=== PATIENT | male | born 1945 | race Hispanic/Latino ===

== ENCOUNTER 2020-11-11 10:31 | Outpatient (CLI) | payer MEDICARE | END 2020-11-11 10:32 | disposition home or self-care (01) | LOC: CSHULT 10:31 | PROVIDERS: ATTEND Internal Medicine | DX: R01.1 Cardiac murmur, unspecified (principal); I51.7 Cardiomegaly; I35.8 Other nonrheumatic aortic valve disorders; I35.0 Nonrheumatic aortic (valve) stenosis; I35.1 Nonrheumatic aortic (valve) insufficiency | CPT/HCPCS: 93306 ==

== ENCOUNTER 2021-05-25 11:40 | Inpatient (IN) | payer MEDICARE ==
[2021-05-25 12:24] LABS: #Monocytes 0.4 10x3/uL (0.0-1.1); #Neutrophils 3.7 10x3/uL (1.5-8.4); %Basophils 0.2 % (0.0-2.0); %Lymphocytes 10.8 % (18.0-47.0); %Monocytes 8.2 % (0.0-10.0); %Neutrophils 80.2 % (40.0-75.0); Hemoglobin 17.9 g/dL (13.5-17.5); Mean Corpuscular HGB CONC 36.1 g/dL (32.0-36.0); Mean Corpuscular Hemoglobin 32.6 pg (27.0-33.0); Mean Corpuscular Volume 90.3 fl (81.2-95.1); Mean Platelet Volume 9.8 fl (7.4-10.4); Platelet Count 104 10x3/uL (150-450); RBC Distribution Width 11.9 % (11.5-14.5); Red Blood Cell (RBC) Count 5.49 10x6/uL (4.32-5.72); White Blood Cell (WBC) Count 4.6 10x3/uL (3.5-10.5)
[2021-05-25 13:00] LABS: ALT (SGPT) 15 U/L (8-55); AST (SGOT) 58 U/L (5-34); Albumin 3.3 g/dL (3.4-4.8); Alkaline Phosphatase 80 U/L (40-110); Anion Gap 15 mmol/L (10-20); BUN (Urea Nitrogen) 17 mg/dL (8.4-25.7); Bilirubin, Total 0.9 mg/dL (0.2-1.2); Calc. Creatinine Clearance 0 mL/min (70-130); Calcium 8.1 mg/dL (7.8-10.44); Carbon Dioxide 24 mmol/L (23-31); Chloride 89 mmol/L (98-107); Globulin 3.1 g/dL (2.4-3.5); Glucose 133 mg/dL (83-110); Protein, Total 6.4 g/dL (5.8-8.1); Sodium 124 mmol/L (136-145)
[2021-05-25] MEDS ORDERED: Dexamethasone 10 MG/ML VIAL ONE (13:21)
[2021-05-25] MEDS ORDERED: Pharmacy to Dose REMDESIVIR IVPB PRN (16:13)
[2021-05-25] MEDS ORDERED: guaiFENesin/Dextromethorphan 10 ML UDCUP PO PRN (16:23)
[2021-05-25] MEDS ORDERED: Dexamethasone 4 mg/ml Vial SLOW IVP SCH (16:30)
[2021-05-25] MEDS: Sodium Chloride 0.9% 1,000 ML IV SCH (17:38)
[2021-05-25] MEDS ORDERED: REMDESIVIR 200 MG in Sodium Chloride 0.9% 250 ML 210 ML IV SCH (18:00)
[2021-05-25] MEDS: Colchicine 0.6 MG TAB PO SCH (20:37)
[2021-05-25] MEDS: Enoxaparin Sodium 40 MG/0.4 ML SYRINGE SC SCH (20:37)
[2021-05-26 05:47] LABS: #Monocytes 0.4 10x3/uL (0.0-1.1); #Neutrophils 2.6 10x3/uL (1.5-8.4); %Basophils 0.5 % (0.0-2.0); %Monocytes 10.6 % (0.0-10.0); %Neutrophils 68.1 % (40.0-75.0); Hemoglobin 18.4 g/dL (13.5-17.5); Mean Corpuscular HGB CONC 35.8 g/dL (32.0-36.0); Mean Corpuscular Hemoglobin 32.8 pg (27.0-33.0); Mean Corpuscular Volume 91.6 fl (81.2-95.1); Mean Platelet Volume 9.5 fl (7.4-10.4); Platelet Count 116 10x3/uL (150-450); RBC Distribution Width 12.1 % (11.5-14.5); Red Blood Cell (RBC) Count 5.61 10x6/uL (4.32-5.72); White Blood Cell (WBC) Count 3.8 10x3/uL (3.5-10.5)
[2021-05-26 05:48] LABS: Anion Gap 16 mmol/L (10-20); BUN (Urea Nitrogen) 18 mg/dL (8.4-25.7); Calc. Creatinine Clearance 63 mL/min (70-130); Carbon Dioxide 24 mmol/L (23-31); Chloride 92 mmol/L (98-107); Potassium 4.6 mmol/L (3.5-5.1); Sodium 127 mmol/L (136-145)
[2021-05-26 05:49] LABS: ALT (SGPT) 17 U/L (8-55); AST (SGOT) 64 U/L (5-34); Albumin 3.1 g/dL (3.4-4.8); Alkaline Phosphatase 77 U/L (40-110); Bilirubin, Total 0.7 mg/dL (0.2-1.2); Calcium 8.2 mg/dL (7.8-10.44); Globulin 3.4 g/dL (2.4-3.5); Glucose 143 mg/dL (83-110); Protein, Total 6.5 g/dL (5.8-8.1)
[2021-05-26] MEDS: Multivitamin W/ Minerals 1 TAB PO SCH (08:45)
[2021-05-26] MEDS: Enoxaparin Sodium 40 MG/0.4 ML SYRINGE SC SCH ×2 (08:45→20:41)
[2021-05-26] MEDS: Colchicine 0.6 MG TAB PO SCH ×2 (08:45→20:41)
[2021-05-26] MEDS: Folic Acid 1 MG TAB PO SCH (08:45)
[2021-05-26] MEDS: Cholecalciferol (Vitamin D3) 400 UNITS TAB PO SCH (08:45)
[2021-05-26] MEDS: Thiamine 100 MG TAB PO SCH (08:45)
[2021-05-26] MEDS: Ascorbic Acid 500 mg Chewable Tablet PO SCH (08:45)
[2021-05-26] MEDS: Zinc Sulfate 220 MG CAP PO SCH (08:45)
[2021-05-26] MEDS ORDERED: Dexamethasone 10 MG in Sodium Chloride 0.9% 50 ML IVPB SCH (13:00)
[2021-05-26] MEDS: Dexamethasone 20 MG/5 ML VIAL SLOW IVP SCH (16:19)
[2021-05-26] MEDS: Sodium Chloride 0.9% 1,000 ML IV SCH (16:20)
[2021-05-26] MEDS: Acetaminophen 325 MG TAB PO PRN (16:34)
[2021-05-26] MEDS: Ondansetron PF 4 MG/2 ML Vial IVP PRN (20:10)
[2021-05-26] MEDS: REMDESIVIR 100 MG in Sodium Chloride 0.9% 250 ML 230 ML IV SCH (20:41)
[2021-05-26] MEDS: Guaifenesin DM 100-10/5 ML UDCUP PO PRN (20:42)
[2021-05-27] MEDS: Guaifenesin DM 100-10/5 ML UDCUP PO PRN (03:18)
[2021-05-27] MEDS: Acetaminophen 325 MG TAB PO PRN (03:18)
[2021-05-27 05:59] LABS: Anion Gap 16 mmol/L (10-20); BUN (Urea Nitrogen) 17 mg/dL (8.4-25.7); CRP (Inflammatory) 5.94 mg/dL (= or < 0.5); Calc. Creatinine Clearance 78 mL/min (70-130); Calcium 7.8 mg/dL (7.8-10.44); Carbon Dioxide 21 mmol/L (23-31); Chloride 96 mmol/L (98-107); Glucose 174 mg/dL (83-110); Potassium 4.9 mmol/L (3.5-5.1); Sodium 128 mmol/L (136-145)
[2021-05-27] MEDS: Ondansetron PF 4 MG/2 ML Vial IVP PRN ×2 (06:04→14:27)
[2021-05-27] MEDS ORDERED: Furosemide 20 MG/2 ML VIAL SLOW IVP SCH (06:15)
[2021-05-27] MEDS ORDERED: Morphine 4 MG/ML VIAL SLOW IVP SCH (06:15)
[2021-05-27 07:09] LABS: #Monocytes 0.7 10x3/uL (0.0-1.1); %Basophils 0.2 % (0.0-2.0); %Lymphocytes 8.1 % (18.0-47.0); %Monocytes 8.1 % (0.0-10.0); %Neutrophils 81.8 % (40.0-75.0); Mean Corpuscular HGB CONC 35.9 g/dL (32.0-36.0); Mean Corpuscular Hemoglobin 32.4 pg (27.0-33.0); Mean Corpuscular Volume 90.3 fl (81.2-95.1); Mean Platelet Volume 9.7 fl (7.4-10.4); Platelet Count 132 10x3/uL (150-450); RBC Distribution Width 11.9 % (11.5-14.5); Red Blood Cell (RBC) Count 5.86 10x6/uL (4.32-5.72); White Blood Cell (WBC) Count 8.6 10x3/uL (3.5-10.5)
[2021-05-27] MEDS: Enoxaparin Sodium 40 MG/0.4 ML SYRINGE SC SCH ×2 (07:43→20:32)
[2021-05-27] MEDS: Multivitamin W/ Minerals 1 TAB PO SCH (07:44)
[2021-05-27] MEDS: Cholecalciferol (Vitamin D3) 400 UNITS TAB PO SCH (07:44)
[2021-05-27] MEDS: Folic Acid 1 MG TAB PO SCH (07:44)
[2021-05-27] MEDS: Zinc Sulfate 220 MG CAP PO SCH (07:44)
[2021-05-27] MEDS: Colchicine 0.6 MG TAB PO SCH ×2 (07:44→20:32)
[2021-05-27] MEDS: Ascorbic Acid 500 mg Chewable Tablet PO SCH (07:44)
[2021-05-27] MEDS: Thiamine 100 MG TAB PO SCH (07:44)
[2021-05-27] MEDS ORDERED: Pantoprazole 40 MG VIAL IVP SCH ×2 (10:00→14:30)
[2021-05-27] MEDS: Dexamethasone 20 MG/5 ML VIAL SLOW IVP SCH (14:26)
[2021-05-27] MEDS: Sodium Chloride 0.9% 1,000 ML IV SCH (17:30)
[2021-05-27] MEDS ORDERED: Ketorolac Tromethamine 30 MG/ML VIAL IVP SCH (18:00)
[2021-05-27] MEDS: Ketorolac Tromethamine 30 MG/ML VIAL IVP PRN (18:41)
[2021-05-27] MEDS: Promethazine HCl 6.25 MG in Sodium Chloride 0.9% 50 ML IVPB PRN (18:42)
[2021-05-27] MEDS: REMDESIVIR 100 MG in Sodium Chloride 0.9% 250 ML 230 ML IV SCH (20:31)
[2021-05-28 04:40] LABS: #Monocytes 0.9 10x3/uL (0.0-1.1); #Neutrophils 7.6 10x3/uL (1.5-8.4); %Basophils 0.3 % (0.0-2.0); %Lymphocytes 6.2 % (18.0-47.0); %Monocytes 9.5 % (0.0-10.0); %Neutrophils 82.6 % (40.0-75.0); Hemoglobin 17.1 g/dL (13.5-17.5); Mean Corpuscular HGB CONC 34.5 g/dL (32.0-36.0); Mean Corpuscular Hemoglobin 32.3 pg (27.0-33.0); Mean Corpuscular Volume 93.6 fl (81.2-95.1); Mean Platelet Volume 9.6 fl (7.4-10.4); Platelet Count 147 10x3/uL (150-450); RBC Distribution Width 11.9 % (11.5-14.5); White Blood Cell (WBC) Count 9.2 10x3/uL (3.5-10.5)
[2021-05-28 05:06] LABS: ALT (SGPT) 37 U/L (8-55); AST (SGOT) 113 U/L (5-34); Albumin 2.6 g/dL (3.4-4.8); Alkaline Phosphatase 81 U/L (40-110); Anion Gap 11 mmol/L (10-20); BUN (Urea Nitrogen) 20 mg/dL (8.4-25.7); Bilirubin, Direct 0.4 mg/dL (0.1-0.3); Bilirubin, Total 0.7 mg/dL (0.2-1.2); Calc. Creatinine Clearance 81 mL/min (70-130); Calcium 7.2 mg/dL (7.8-10.44); Carbon Dioxide 24 mmol/L (23-31); Chloride 98 mmol/L (98-107); Glucose 161 mg/dL (83-110); Potassium 4.3 mmol/L (3.5-5.1); Protein, Total 5.2 g/dL (5.8-8.1); Sodium 129 mmol/L (136-145)
[2021-05-28] MEDS: Folic Acid 1 MG TAB PO SCH (08:51)
[2021-05-28] MEDS: Zinc Sulfate 220 MG CAP PO SCH (08:51)
[2021-05-28] MEDS: Multivitamin W/ Minerals 1 TAB PO SCH (08:52)
[2021-05-28] MEDS: Thiamine 100 MG TAB PO SCH (08:52)
[2021-05-28] MEDS: Ascorbic Acid 500 mg Chewable Tablet PO SCH (08:52)
[2021-05-28] MEDS: Cholecalciferol (Vitamin D3) 400 UNITS TAB PO SCH (08:52)
[2021-05-28] MEDS: Enoxaparin Sodium 40 MG/0.4 ML SYRINGE SC SCH ×2 (08:52→20:17)
[2021-05-28] MEDS: Colchicine 0.6 MG TAB PO SCH ×2 (08:52→20:18)
[2021-05-28] MEDS: Pantoprazole 40 MG VIAL IVP SCH (08:52)
[2021-05-28] MEDS: Dexamethasone 20 MG/5 ML VIAL SLOW IVP SCH (16:10)
[2021-05-28] MEDS: Sodium Chloride 0.9% 1,000 ML IV SCH (17:34)
[2021-05-28] MEDS ORDERED: Sodium Chloride 0.9% 500 ML IV SCH (18:30)
[2021-05-28] MEDS ORDERED: FLU VACC QS2021-22(65YR UP)/PF 240 MCG/0.7 ML SYRINGE IM ONE (18:30)
[2021-05-28] MEDS: REMDESIVIR 100 MG in Sodium Chloride 0.9% 250 ML 230 ML IV SCH (21:13)
[2021-05-29] MEDS: Sodium Chloride 0.9% 1,000 ML IV SCH ×6 (02:33→20:12)
[2021-05-29] MEDS: Ondansetron PF 4 MG/2 ML Vial IVP PRN ×4 (03:05→21:26)
[2021-05-29] MEDS: Guaifenesin DM 100-10/5 ML UDCUP PO PRN (05:25)
[2021-05-29] MEDS: Promethazine HCl 6.25 MG in Sodium Chloride 0.9% 50 ML IVPB PRN ×2 (06:29→12:35)
[2021-05-29 08:25] LABS: #Basophils 0.1 10x3/uL (0.0-0.2); #Monocytes 1.4 10x3/uL (0.0-1.1); #Neutrophils 9.1 10x3/uL (1.5-8.4); %Basophils 0.7 % (0.0-2.0); %Lymphocytes 9.3 % (18.0-47.0); %Monocytes 11.5 % (0.0-10.0); %Neutrophils 76.6 % (40.0-75.0); Hemoglobin 18.8 g/dL (13.5-17.5); Mean Corpuscular HGB CONC 34.2 g/dL (32.0-36.0); Mean Corpuscular Hemoglobin 32.5 pg (27.0-33.0); Mean Corpuscular Volume 94.8 fl (81.2-95.1); Platelet Count 148 10x3/uL (150-450); RBC Distribution Width 12.2 % (11.5-14.5); Red Blood Cell (RBC) Count 5.79 10x6/uL (4.32-5.72); White Blood Cell (WBC) Count 11.9 10x3/uL (3.5-10.5)
[2021-05-29] MEDS: Ascorbic Acid 500 mg Chewable Tablet PO SCH (09:49)
[2021-05-29] MEDS: Pantoprazole 40 MG VIAL IVP SCH (09:49)
[2021-05-29] MEDS: Enoxaparin Sodium 40 MG/0.4 ML SYRINGE SC SCH ×2 (09:49→20:12)
[2021-05-29] MEDS: Colchicine 0.6 MG TAB PO SCH ×2 (09:49→20:12)
[2021-05-29] MEDS: Multivitamin W/ Minerals 1 TAB PO SCH (09:49)
[2021-05-29] MEDS: Zinc Sulfate 220 MG CAP PO SCH (09:49)
[2021-05-29] MEDS: Cholecalciferol (Vitamin D3) 400 UNITS TAB PO SCH (09:49)
[2021-05-29] MEDS: Folic Acid 1 MG TAB PO SCH (09:49)
[2021-05-29] MEDS: Thiamine 100 MG TAB PO SCH (09:49)
[2021-05-29 10:07] LABS: Bilirubin, Total 0.4 mg/dL (0.2-1.2); Calcium 7.2 mg/dL (7.8-10.44); Chloride 102 mmol/L (98-107); Potassium 4.4 mmol/L (3.5-5.1); Sodium 126 mmol/L (136-145)
[2021-05-29 10:30] LABS: ALT (SGPT) 102 U/L (8-55); AST (SGOT) 397 U/L (5-34); Albumin 2.7 g/dL (3.4-4.8); Alkaline Phosphatase 105 U/L (40-110); BUN (Urea Nitrogen) 14 mg/dL (8.4-25.7); Bilirubin, Direct 0.3 mg/dL (0.1-0.3); Calc. Creatinine Clearance 96 mL/min (70-130); Carbon Dioxide 16 mmol/L (23-31); Glucose 85 mg/dL (83-110); Protein, Total 5.8 g/dL (5.8-8.1)
[2021-05-29 10:31] LABS: Anion Gap 12 mmol/L (10-20)
[2021-05-29] MEDS: Dexamethasone 20 MG/5 ML VIAL SLOW IVP SCH (12:35)
[2021-05-29] MEDS: Ketorolac Tromethamine 30 MG/ML VIAL IVP PRN ×2 (15:46→21:26)
[2021-05-29] MEDS: Loperamide HCl 2 MG CAP PO PRN ×2 (15:59→20:12)
[2021-05-29] MEDS: Promethazine HCl 12.5 MG, Admixture Fee 1 EACH in Sodium Chloride 0.9% 50 ML IVPB PRN (17:39)
[2021-05-29] MEDS: Acetaminophen 325 MG TAB PO PRN (17:45)
[2021-05-29] MEDS: REMDESIVIR 100 MG in Sodium Chloride 0.9% 250 ML 230 ML IV SCH (20:11)
[2021-05-29] MEDS: hydrALAZINE 20 MG/ML VIAL SLOW IVP PRN (20:35)
[2021-05-30] MEDS: Promethazine HCl 12.5 MG, Admixture Fee 1 EACH in Sodium Chloride 0.9% 50 ML IVPB PRN (01:56)
[2021-05-30] MEDS: Acetaminophen 325 MG TAB PO PRN ×2 (02:08→20:51)
[2021-05-30 07:17] LABS: Anion Gap 12 mmol/L (10-20); BUN (Urea Nitrogen) 12 mg/dL (8.4-25.7); Calc. Creatinine Clearance 98 mL/min (70-130); Calcium 7.3 mg/dL (7.8-10.44); Carbon Dioxide 19 mmol/L (23-31); Chloride 104 mmol/L (98-107); Glucose 84 mg/dL (83-110); Potassium 3.8 mmol/L (3.5-5.1); Sodium 131 mmol/L (136-145)
[2021-05-30 07:22] LABS: #Monocytes 0.9 10x3/uL (0.0-1.1); #Neutrophils 7.8 10x3/uL (1.5-8.4); %Basophils 0.4 % (0.0-2.0); %Lymphocytes 9.1 % (18.0-47.0); %Monocytes 9.2 % (0.0-10.0); %Neutrophils 79.7 % (40.0-75.0); Hemoglobin 18.5 g/dL (13.5-17.5); Mean Corpuscular HGB CONC 36.1 g/dL (32.0-36.0); Mean Corpuscular Hemoglobin 32.6 pg (27.0-33.0); Mean Corpuscular Volume 90.3 fl (81.2-95.1); Mean Platelet Volume 9.1 fl (7.4-10.4); Platelet Count 162 10x3/uL (150-450); RBC Distribution Width 11.9 % (11.5-14.5); Red Blood Cell (RBC) Count 5.67 10x6/uL (4.32-5.72); White Blood Cell (WBC) Count 9.8 10x3/uL (3.5-10.5)
[2021-05-30] MEDS ORDERED: Furosemide 20 MG/2 ML VIAL SLOW IVP SCH ×2 (08:15→08:44)
[2021-05-30 08:24] LABS: ALT (SGPT) 116 U/L (8-55); AST (SGOT) 252 U/L (5-34); Albumin 2.8 g/dL (3.4-4.8); Alkaline Phosphatase 94 U/L (40-110); Bilirubin, Total 1.6 mg/dL (0.2-1.2); Protein, Total 5.3 g/dL (5.8-8.1)
[2021-05-30] MEDS: Sodium Chloride 0.9% 1,000 ML IV SCH (09:30)
[2021-05-30 10:48] LABS: Base Excess (BEa) 0.8 mEq/L (-2.0 to +3.0); Calcium, Ionized (arterial) 1.08 mmol/L (1.12-1.30); Carboxyhemoglobin (COHb) 0.3 gm% (0.0-3.0); Critical Notified Whom: buzpr; Hemoglobin (Hb) 21.1 g/dL (14.0-18.0); O2 Tension (PaO2), arterial 70.6 mmHg (> 70.0); Potassium - ABG Lab 3.6 mmol/L (3.70-5.30); Puncture Site RRA; pH, Arterial 7.48 (7.35-7.45)
[2021-05-30] MEDS: Cholecalciferol (Vitamin D3) 400 UNITS TAB PO SCH ×2 (12:19→12:20)
[2021-05-30] MEDS: Folic Acid 1 MG TAB PO SCH ×2 (12:19→12:21)
[2021-05-30] MEDS: Ascorbic Acid 500 mg Chewable Tablet PO SCH ×2 (12:19→12:20)
[2021-05-30] MEDS: Zinc Sulfate 220 MG CAP PO SCH ×2 (12:20→12:22)
[2021-05-30] MEDS: Multivitamin W/ Minerals 1 TAB PO SCH ×2 (12:20→12:21)
[2021-05-30] MEDS: Colchicine 0.6 MG TAB PO SCH ×2 (12:20→20:51)
[2021-05-30] MEDS: Thiamine 100 MG TAB PO SCH ×2 (12:20→12:21)
[2021-05-30] MEDS ORDERED: Nitroglycerin 0.4 MG TAB (25 Tab Bottle) SL PRN (12:27)
[2021-05-30] MEDS: Pantoprazole 40 MG VIAL IVP SCH (12:29)
[2021-05-30] MEDS: Enoxaparin Sodium 40 MG/0.4 ML SYRINGE SC SCH ×2 (12:29→20:50)
[2021-05-30] MEDS ORDERED: Lorazepam 2 MG/ML VIAL SLOW IVP PRN (13:33)
[2021-05-30] MEDS: BARICITINIB 2 MG TAB PO SCH (16:48)
[2021-05-30] MEDS: Ketorolac Tromethamine 30 MG/ML VIAL IVP PRN (16:48)
[2021-05-30] MEDS: Ondansetron PF 4 MG/2 ML Vial IVP PRN (16:50)
[2021-05-30] MEDS: Dexamethasone 20 MG/5 ML VIAL SLOW IVP SCH (20:50)
[2021-05-31 03:46] LABS: #Monocytes 0.3 10x3/uL (0.0-1.1); #Neutrophils 4.6 10x3/uL (1.5-8.4); %Basophils 0.4 % (0.0-2.0); %Lymphocytes 11.5 % (18.0-47.0); %Monocytes 4.6 % (0.0-10.0); %Neutrophils 82.1 % (40.0-75.0); Hemoglobin 18.4 g/dL (13.5-17.5); Mean Corpuscular HGB CONC 36.4 g/dL (32.0-36.0); Mean Corpuscular Hemoglobin 32.5 pg (27.0-33.0); Mean Corpuscular Volume 89.1 fl (81.2-95.1); Mean Platelet Volume 9.1 fl (7.4-10.4); Platelet Count 145 10x3/uL (150-450); RBC Distribution Width 11.8 % (11.5-14.5); Red Blood Cell (RBC) Count 5.67 10x6/uL (4.32-5.72); White Blood Cell (WBC) Count 5.6 10x3/uL (3.5-10.5)
[2021-05-31] MEDS: Ondansetron PF 4 MG/2 ML Vial IVP PRN ×2 (04:03→10:15)
[2021-05-31 04:06] LABS: ALT (SGPT) 120 U/L (8-55); AST (SGOT) 171 U/L (5-34); Albumin 2.9 g/dL (3.4-4.8); Alkaline Phosphatase 94 U/L (40-110); Anion Gap 11 mmol/L (10-20); BUN (Urea Nitrogen) 17 mg/dL (8.4-25.7); Bilirubin, Total 1.6 mg/dL (0.2-1.2); CRP (Inflammatory) 8.17 mg/dL (= or < 0.5); Calc. Creatinine Clearance 90 mL/min (70-130); Calcium 7.7 mg/dL (7.8-10.44); Carbon Dioxide 23 mmol/L (23-31); Chloride 98 mmol/L (98-107); Globulin 2.7 g/dL (2.4-3.5); Glucose 131 mg/dL (83-110); Protein, Total 5.6 g/dL (5.8-8.1); Sodium 128 mmol/L (136-145)
[2021-05-31] MEDS: Ketorolac Tromethamine 30 MG/ML VIAL IVP PRN ×3 (04:07→20:36)
[2021-05-31] MEDS: hydrALAZINE 20 MG/ML VIAL SLOW IVP PRN (05:39)
[2021-05-31] MEDS: Dexmedetomidine In 0.9 % NaCl 100 ML IVPB SCH ×2 (09:40→17:16)
[2021-05-31] MEDS: Enoxaparin Sodium 40 MG/0.4 ML SYRINGE SC SCH ×2 (10:12→20:36)
[2021-05-31] MEDS: Dexamethasone 20 MG/5 ML VIAL SLOW IVP SCH ×2 (10:13→20:36)
[2021-05-31] MEDS: Pantoprazole 40 MG VIAL IVP SCH (10:13)
[2021-05-31] MEDS: Colchicine 0.6 MG TAB PO SCH ×2 (10:13→20:36)
[2021-05-31] MEDS: Cholecalciferol (Vitamin D3) 400 UNITS TAB PO SCH (10:17)
[2021-05-31] MEDS: Ascorbic Acid 500 mg Chewable Tablet PO SCH (10:17)
[2021-05-31] MEDS: Multivitamin W/ Minerals 1 TAB PO SCH (10:17)
[2021-05-31] MEDS: Thiamine 100 MG TAB PO SCH (10:17)
[2021-05-31] MEDS: Zinc Sulfate 220 MG CAP PO SCH (10:17)
[2021-05-31] MEDS: Folic Acid 1 MG TAB PO SCH (10:17)
[2021-05-31] MEDS ORDERED: Furosemide 40 MG/4 ML VIAL SLOW IVP SCH (12:00)
[2021-05-31] MEDS: BARICITINIB 2 MG TAB PO SCH (17:15)
[2021-06-01 04:46] LABS: #Monocytes 0.7 10x3/uL (0.0-1.1); #Neutrophils 5.2 10x3/uL (1.5-8.4); %Basophils 0.3 % (0.0-2.0); %Lymphocytes 13.8 % (18.0-47.0); %Monocytes 10.4 % (0.0-10.0); %Neutrophils 74.4 % (40.0-75.0); Hemoglobin 18.3 g/dL (13.5-17.5); Mean Corpuscular HGB CONC 36.9 g/dL (32.0-36.0); Mean Corpuscular Hemoglobin 32.9 pg (27.0-33.0); Mean Corpuscular Volume 89.2 fl (81.2-95.1); Mean Platelet Volume 10.2 fl (7.4-10.4); Red Blood Cell (RBC) Count 5.56 10x6/uL (4.32-5.72)
[2021-06-01 04:49] LABS: Platelet Count 144 10x3/uL (150-450)
[2021-06-01] MEDS: Dexmedetomidine In 0.9 % NaCl 100 ML IVPB SCH ×2 (07:46→18:00)
[2021-06-01] MEDS: Ondansetron PF 4 MG/2 ML Vial IVP PRN ×2 (10:27→20:25)
[2021-06-01] MEDS: Ketorolac Tromethamine 30 MG/ML VIAL IVP PRN (10:27)
[2021-06-01] MEDS: Pantoprazole 40 MG VIAL IVP SCH (10:27)
[2021-06-01] MEDS: Enoxaparin Sodium 40 MG/0.4 ML SYRINGE SC SCH ×2 (10:27→20:25)
[2021-06-01] MEDS: Dexamethasone 20 MG/5 ML VIAL SLOW IVP SCH ×2 (10:28→20:25)
[2021-06-01] MEDS: Ascorbic Acid 500 mg Chewable Tablet PO SCH (10:29)
[2021-06-01] MEDS: Multivitamin W/ Minerals 1 TAB PO SCH (10:29)
[2021-06-01] MEDS: Cholecalciferol (Vitamin D3) 400 UNITS TAB PO SCH (10:29)
[2021-06-01] MEDS: Colchicine 0.6 MG TAB PO SCH ×2 (10:29→20:24)
[2021-06-01] MEDS: Zinc Sulfate 220 MG CAP PO SCH (10:29)
[2021-06-01] MEDS: Thiamine 100 MG TAB PO SCH (10:29)
[2021-06-01] MEDS: Folic Acid 1 MG TAB PO SCH (10:30)
[2021-06-01] MEDS: Morphine 4 MG/ML VIAL SLOW IVP PRN ×2 (16:42→20:24)
[2021-06-01] MEDS: BARICITINIB 2 MG TAB PO SCH (16:43)
[2021-06-01] MEDS: Guaifenesin DM 100-10/5 ML UDCUP PO PRN (21:44)
[2021-06-02 01:48] LABS: Hep C IgG Ab Reflex HepC Qnt (NonReactive); Hep C Index 1.53 S/CO (0-0.79)
[2021-06-02] MEDS: Ondansetron PF 4 MG/2 ML Vial IVP PRN ×3 (02:06→20:43)
[2021-06-02 04:10] LABS: Anion Gap 12 mmol/L (10-20); BUN (Urea Nitrogen) 31 mg/dL (8.4-25.7); Calc. Creatinine Clearance 84 mL/min (70-130); Calcium 7.6 mg/dL (7.8-10.44); Carbon Dioxide 22 mmol/L (23-31); Chloride 100 mmol/L (98-107); Glucose 144 mg/dL (83-110); Potassium 4.3 mmol/L (3.5-5.1); Sodium 130 mmol/L (136-145)
[2021-06-02] MEDS: Dexmedetomidine In 0.9 % NaCl 100 ML IVPB SCH (04:51)
[2021-06-02 05:30] VITALS: BMI 23.8
[2021-06-02] MEDS ORDERED: HYDROcodone/Acetaminophen 5/325 mg Tablet PO PRN (08:04)
[2021-06-02] MEDS: Morphine 4 MG/ML VIAL SLOW IVP PRN ×3 (08:07→18:41)
[2021-06-02] MEDS ORDERED: Ventolin HFA Inhaler 60 PUFF INHALER INH PRN (08:49)
[2021-06-02] MEDS ORDERED: Ipratropium Oral Inhaler INH PRN (08:49)
[2021-06-02 09:00] LABS: ALT (SGPT) 117 U/L (8-55); AST (SGOT) 180 U/L (5-34); Albumin 2.8 g/dL (3.4-4.8); Alkaline Phosphatase 116 U/L (40-110); Bilirubin, Direct 0.7 mg/dL (0.1-0.3); Bilirubin, Total 1.2 mg/dL (0.2-1.2); Protein, Total 5.1 g/dL (5.8-8.1)
[2021-06-02] MEDS: guaiFENesin/Codeine Phosphate 100 mg/10 mg 5 ml UD Cup PO PRN (09:27)
[2021-06-02] MEDS: Enoxaparin Sodium 40 MG/0.4 ML SYRINGE SC SCH ×2 (09:27→20:41)
[2021-06-02] MEDS: Thiamine 100 MG TAB PO SCH (09:28)
[2021-06-02] MEDS: Pantoprazole 40 MG VIAL IVP SCH (09:28)
[2021-06-02] MEDS: Dexamethasone 20 MG/5 ML VIAL SLOW IVP SCH (09:28)
[2021-06-02] MEDS: Ascorbic Acid 500 mg Chewable Tablet PO SCH (09:28)
[2021-06-02] MEDS: Multivitamin W/ Minerals 1 TAB PO SCH (09:28)
[2021-06-02] MEDS: Cholecalciferol (Vitamin D3) 400 UNITS TAB PO SCH (09:28)
[2021-06-02] MEDS: traZODone HCl 50 MG TAB PO SCH ×2 (09:28→20:41)
[2021-06-02] MEDS: Folic Acid 1 MG TAB PO SCH (09:29)
[2021-06-02] MEDS: Zinc Sulfate 220 MG CAP PO SCH (09:29)
[2021-06-02] MEDS: Lorazepam 0.5 MG TAB PO PRN ×3 (10:45→20:42)
[2021-06-02] MEDS ORDERED: Ibuprofen 400 MG TAB PO PRN (13:20)
[2021-06-02] MEDS: Benzonatate 100 MG CAP PO PRN ×2 (13:29→20:42)
[2021-06-02] MEDS: Loperamide HCl 2 MG CAP PO PRN ×2 (13:44→20:42)
[2021-06-02] MEDS: Acetaminophen 325 MG TAB PO PRN (16:16)
[2021-06-02] MEDS: BARICITINIB 2 MG TAB PO SCH (16:16)
[2021-06-02] MEDS: HYDROcodone/Acetaminophen 5/325 mg Tablet PO PRN (20:42)
[2021-06-02] MEDS ORDERED: cloNIDine 0.1 MG TAB PO SCH (22:45)
[2021-06-03] MEDS: HYDROcodone/Acetaminophen 5/325 mg Tablet PO PRN (00:21)
[2021-06-03] MEDS: hydrALAZINE 20 MG/ML VIAL SLOW IVP PRN ×2 (00:21→08:01)
[2021-06-03] MEDS: Acetaminophen 325 MG TAB PO PRN (04:06)
[2021-06-03] MEDS: guaiFENesin/Codeine Phosphate 100 mg/10 mg 5 ml UD Cup PO PRN (04:07)
[2021-06-03 04:51] LABS: #Monocytes 1.7 10x3/uL (0.0-1.1); #Neutrophils 11.2 10x3/uL (1.5-8.4); %Basophils 0.1 % (0.0-2.0); %Eosinophils 0.1 % (0.0-6.0); %Lymphocytes 9.3 % (18.0-47.0); %Neutrophils 77.8 % (40.0-75.0); Hemoglobin 19.5 g/dL (13.5-17.5); Mean Corpuscular HGB CONC 36.2 g/dL (32.0-36.0); Mean Corpuscular Hemoglobin 32.8 pg (27.0-33.0); Mean Corpuscular Volume 90.4 fl (81.2-95.1); Mean Platelet Volume 9.5 fl (7.4-10.4); Platelet Count 210 10x3/uL (150-450); RBC Distribution Width 11.7 % (11.5-14.5); Red Blood Cell (RBC) Count 5.95 10x6/uL (4.32-5.72); White Blood Cell (WBC) Count 14.4 10x3/uL (3.5-10.5)
[2021-06-03 05:16] LABS: ALT (SGPT) 118 U/L (8-55); AST (SGOT) 112 U/L (5-34); Albumin 3.3 g/dL (3.4-4.8); Alkaline Phosphatase 135 U/L (40-110); Anion Gap 12 mmol/L (10-20); BUN (Urea Nitrogen) 27 mg/dL (8.4-25.7); Bilirubin, Total 1.8 mg/dL (0.2-1.2); Calc. Creatinine Clearance 78 mL/min (70-130); Calcium 8.1 mg/dL (7.8-10.44); Carbon Dioxide 25 mmol/L (23-31); Chloride 98 mmol/L (98-107); Glucose 120 mg/dL (83-110); Potassium 3.6 mmol/L (3.5-5.1); Protein, Total 6.3 g/dL (5.8-8.1); Sodium 131 mmol/L (136-145)
[2021-06-03] MEDS: Dexamethasone 20 MG/5 ML VIAL SLOW IVP SCH (07:41)
[2021-06-03] MEDS: Enoxaparin Sodium 40 MG/0.4 ML SYRINGE SC SCH (07:42)
[2021-06-03] MEDS: Pantoprazole 40 MG VIAL IVP SCH (07:43)
[2021-06-03] MEDS: Multivitamin W/ Minerals 1 TAB PO SCH (07:43)
[2021-06-03] MEDS: traZODone HCl 50 MG TAB PO SCH ×2 (07:43→21:02)
[2021-06-03] MEDS: Cholecalciferol (Vitamin D3) 400 UNITS TAB PO SCH (07:43)
[2021-06-03] MEDS: Zinc Sulfate 220 MG CAP PO SCH (07:44)
[2021-06-03] MEDS: Folic Acid 1 MG TAB PO SCH (07:45)
[2021-06-03] MEDS: Thiamine 100 MG TAB PO SCH (07:45)
[2021-06-03] MEDS: Ascorbic Acid 500 mg Chewable Tablet PO SCH (07:45)
[2021-06-03 09:50] LABS: HIV (1/2) Antibody/Antigen Non-Reactive (NonReactive); HIV 1/2 INDEX 0.07 S/CO (<1.00)
[2021-06-03] MEDS ORDERED: Sodium Chloride 0.9% 500 ML IV SCH (12:15)
[2021-06-03] MEDS: BARICITINIB 2 MG TAB PO SCH (15:45)
[2021-06-03] MEDS: Benzonatate 100 MG CAP PO PRN (21:02)
[2021-06-04] MEDS: Loperamide HCl 2 MG CAP PO PRN (04:32)
[2021-06-04] MEDS: Multivitamin W/ Minerals 1 TAB PO SCH (08:27)
[2021-06-04] MEDS: Pantoprazole 40 MG VIAL IVP SCH (08:27)
[2021-06-04] MEDS: traZODone HCl 50 MG TAB PO SCH ×2 (08:27→21:39)
[2021-06-04] MEDS: Dexamethasone 20 MG/5 ML VIAL SLOW IVP SCH (08:27)
[2021-06-04] MEDS: Zinc Sulfate 220 MG CAP PO SCH (08:27)
[2021-06-04] MEDS: Enoxaparin Sodium 40 MG/0.4 ML SYRINGE SC SCH (08:27)
[2021-06-04] MEDS: Thiamine 100 MG TAB PO SCH (08:27)
[2021-06-04] MEDS: Cholecalciferol (Vitamin D3) 400 UNITS TAB PO SCH (08:27)
[2021-06-04] MEDS: Ascorbic Acid 500 mg Chewable Tablet PO SCH (08:27)
[2021-06-04] MEDS: Folic Acid 1 MG TAB PO SCH (08:27)
[2021-06-04 10:21] LABS: #Monocytes 0.9 10x3/uL (0.0-1.1); #Neutrophils 9.3 10x3/uL (1.5-8.4); %Basophils 0.1 % (0.0-2.0); %Eosinophils 0.2 % (0.0-6.0); %Lymphocytes 4.7 % (18.0-47.0); %Monocytes 8.6 % (0.0-10.0); %Neutrophils 85.5 % (40.0-75.0); Hemoglobin 17.1 g/dL (13.5-17.5); Mean Corpuscular HGB CONC 35.5 g/dL (32.0-36.0); Mean Corpuscular Hemoglobin 32.1 pg (27.0-33.0); Mean Corpuscular Volume 90.4 fl (81.2-95.1); Mean Platelet Volume 9.7 fl (7.4-10.4); Platelet Count 147 10x3/uL (150-450); RBC Distribution Width 11.8 % (11.5-14.5); Red Blood Cell (RBC) Count 5.33 10x6/uL (4.32-5.72); White Blood Cell (WBC) Count 10.8 10x3/uL (3.5-10.5)
[2021-06-04 10:44] LABS: ALT (SGPT) 72 U/L (8-55); AST (SGOT) 49 U/L (5-34); Albumin 2.9 g/dL (3.4-4.8); Alkaline Phosphatase 105 U/L (40-110); Anion Gap 13 mmol/L (10-20); BUN (Urea Nitrogen) 15 mg/dL (8.4-25.7); Bilirubin, Total 1.4 mg/dL (0.2-1.2); Calc. Creatinine Clearance 89 mL/min (70-130); Calcium 7.9 mg/dL (7.8-10.44); Carbon Dioxide 21 mmol/L (23-31); Chloride 101 mmol/L (98-107); Globulin 2.6 g/dL (2.4-3.5); Glucose 116 mg/dL (83-110); Magnesium 2.2 mg/dL (1.6-2.6); Potassium 3.6 mmol/L (3.5-5.1); Protein, Total 5.5 g/dL (5.8-8.1); Sodium 131 mmol/L (136-145)
[2021-06-04 11:07] LABS: Phosphorus 1.7 mg/dL (2.3-4.7)
[2021-06-04] MEDS ORDERED: PHOS-NAK 1 PKT PACK PO SCH (12:00)
[2021-06-04] MEDS: BARICITINIB 2 MG TAB PO SCH (16:54)
[2021-06-04] MEDS: PHOS-NAK 1 PKT PACK PO SCH (21:39)
[2021-06-05 05:34] LABS: #Monocytes 1.4 10x3/uL (0.0-1.1); #Neutrophils 11.4 10x3/uL (1.5-8.4); %Basophils 0.2 % (0.0-2.0); %Eosinophils 0.1 % (0.0-6.0); %Lymphocytes 7.3 % (18.0-47.0); %Monocytes 10.2 % (0.0-10.0); %Neutrophils 81.4 % (40.0-75.0); Hemoglobin 17.5 g/dL (13.5-17.5); Mean Corpuscular HGB CONC 36.1 g/dL (32.0-36.0); Mean Corpuscular Hemoglobin 32.6 pg (27.0-33.0); Mean Corpuscular Volume 90.5 fl (81.2-95.1); Mean Platelet Volume 9.6 fl (7.4-10.4); Platelet Count 158 10x3/uL (150-450); RBC Distribution Width 11.8 % (11.5-14.5); Red Blood Cell (RBC) Count 5.36 10x6/uL (4.32-5.72)
[2021-06-05 05:57] LABS: ALT (SGPT) 64 U/L (8-55); AST (SGOT) 49 U/L (5-34); Albumin 2.9 g/dL (3.4-4.8); Alkaline Phosphatase 107 U/L (40-110); Anion Gap 12 mmol/L (10-20); BUN (Urea Nitrogen) 18 mg/dL (8.4-25.7); Bilirubin, Total 1.3 mg/dL (0.2-1.2); Calc. Creatinine Clearance 89 mL/min (70-130); Calcium 8.1 mg/dL (7.8-10.44); Carbon Dioxide 22 mmol/L (23-31); Chloride 102 mmol/L (98-107); Globulin 2.7 g/dL (2.4-3.5); Glucose 87 mg/dL (83-110); Magnesium 2.2 mg/dL (1.6-2.6); Potassium 3.6 mmol/L (3.5-5.1); Protein, Total 5.6 g/dL (5.8-8.1); Sodium 132 mmol/L (136-145)
[2021-06-05] MEDS: Zinc Sulfate 220 MG CAP PO SCH (08:08)
[2021-06-05] MEDS: traZODone HCl 50 MG TAB PO SCH ×2 (08:08→21:49)
[2021-06-05] MEDS: Ascorbic Acid 500 mg Chewable Tablet PO SCH (08:09)
[2021-06-05] MEDS: Enoxaparin Sodium 40 MG/0.4 ML SYRINGE SC SCH (08:09)
[2021-06-05] MEDS: Benzonatate 100 MG CAP PO PRN (08:09)
[2021-06-05] MEDS: Thiamine 100 MG TAB PO SCH (08:09)
[2021-06-05] MEDS: Cholecalciferol (Vitamin D3) 400 UNITS TAB PO SCH (08:09)
[2021-06-05] MEDS: Multivitamin W/ Minerals 1 TAB PO SCH (08:09)
[2021-06-05] MEDS: Dexamethasone 20 MG/5 ML VIAL SLOW IVP SCH (08:09)
[2021-06-05] MEDS: Folic Acid 1 MG TAB PO SCH (08:10)
[2021-06-05] MEDS: Pantoprazole 40 MG VIAL IVP SCH (08:11)
[2021-06-05] MEDS: PHOS-NAK 1 PKT PACK PO SCH ×2 (08:11→21:49)
[2021-06-05] MEDS: guaiFENesin/Codeine Phosphate 100 mg/10 mg 5 ml UD Cup PO PRN (08:14)
[2021-06-05] MEDS: Ondansetron PF 4 MG/2 ML Vial IVP PRN (08:30)
[2021-06-05] MEDS ORDERED: Sodium Chloride 0.9% 500 ML IV SCH (14:45)
[2021-06-05 15:12] LABS: Hep C PCR-Quant HCV Not Detected IU/mL (.)
[2021-06-05] MEDS: BARICITINIB 2 MG TAB PO SCH (15:55)
[2021-06-06 05:58] LABS: PTT 26.3 sec (22.0-33.0); Prothrombin Time 11.5 sec (9.5-12.1)
[2021-06-06 06:01] LABS: #Monocytes 1.2 10x3/uL (0.0-1.1); #Neutrophils 12.8 10x3/uL (1.5-8.4); %Basophils 0.1 % (0.0-2.0); %Eosinophils 0.2 % (0.0-6.0); %Lymphocytes 7.4 % (18.0-47.0); %Monocytes 8.1 % (0.0-10.0); %Neutrophils 83.4 % (40.0-75.0); Hemoglobin 15.9 g/dL (13.5-17.5); Mean Corpuscular HGB CONC 35.1 g/dL (32.0-36.0); Mean Corpuscular Hemoglobin 32.4 pg (27.0-33.0); Mean Corpuscular Volume 92.4 fl (81.2-95.1); Mean Platelet Volume 10.1 fl (7.4-10.4); Platelet Count 164 10x3/uL (150-450); RBC Distribution Width 11.9 % (11.5-14.5); White Blood Cell (WBC) Count 15.4 10x3/uL (3.5-10.5)
[2021-06-06 06:22] LABS: ALT (SGPT) 58 U/L (8-55); AST (SGOT) 48 U/L (5-34); Albumin 2.7 g/dL (3.4-4.8); Alkaline Phosphatase 95 U/L (40-110); Anion Gap 11 mmol/L (10-20); BUN (Urea Nitrogen) 20 mg/dL (8.4-25.7); Bilirubin, Total 1.1 mg/dL (0.2-1.2); Calc. Creatinine Clearance 82 mL/min (70-130); Carbon Dioxide 23 mmol/L (23-31); Chloride 103 mmol/L (98-107); Globulin 2.8 g/dL (2.4-3.5); Glucose 81 mg/dL (83-110); Magnesium 2.3 mg/dL (1.6-2.6); Phosphorus 2.6 mg/dL (2.3-4.7); Potassium 4.3 mmol/L (3.5-5.1); Protein, Total 5.5 g/dL (5.8-8.1); Sodium 133 mmol/L (136-145)
[2021-06-06 10:13] LABS: Hep B Surface AG-Rflx Sendout Negative (Negative); Hepatitis B Core Total Negative (Negative); Hepatitis B Surface AB-Sendout Reactive (.)
[2021-06-06] MEDS: Folic Acid 1 MG TAB PO SCH (10:20)
[2021-06-06] MEDS: Thiamine 100 MG TAB PO SCH (10:20)
[2021-06-06] MEDS: Cholecalciferol (Vitamin D3) 400 UNITS TAB PO SCH (10:20)
[2021-06-06] MEDS: Zinc Sulfate 220 MG CAP PO SCH (10:20)
[2021-06-06] MEDS: Enoxaparin Sodium 40 MG/0.4 ML SYRINGE SC SCH (10:21)
[2021-06-06] MEDS: Multivitamin W/ Minerals 1 TAB PO SCH (10:21)
[2021-06-06] MEDS: traZODone HCl 50 MG TAB PO SCH ×2 (10:21→22:42)
[2021-06-06] MEDS: Ascorbic Acid 500 mg Chewable Tablet PO SCH (10:21)
[2021-06-06] MEDS: Dexamethasone 20 MG/5 ML VIAL SLOW IVP SCH (10:21)
[2021-06-06] MEDS: Pantoprazole 40 MG VIAL IVP SCH (10:21)
[2021-06-06] MEDS: BARICITINIB 2 MG TAB PO SCH (15:51)
[2021-06-07 06:01] LABS: #Monocytes 1.4 10x3/uL (0.0-1.1); #Neutrophils 11.4 10x3/uL (1.5-8.4); %Basophils 0.1 % (0.0-2.0); %Eosinophils 0.1 % (0.0-6.0); %Lymphocytes 8.4 % (18.0-47.0); %Monocytes 9.7 % (0.0-10.0); %Neutrophils 80.6 % (40.0-75.0); Hemoglobin 16.2 g/dL (13.5-17.5); Mean Corpuscular HGB CONC 34.2 g/dL (32.0-36.0); Mean Corpuscular Volume 93.3 fl (81.2-95.1); Mean Platelet Volume 9.9 fl (7.4-10.4); Platelet Count 182 10x3/uL (150-450); Red Blood Cell (RBC) Count 5.07 10x6/uL (4.32-5.72); White Blood Cell (WBC) Count 14.1 10x3/uL (3.5-10.5)
[2021-06-07 06:07] LABS: ALT (SGPT) 53 U/L (8-55); AST (SGOT) 33 U/L (5-34); Albumin 2.8 g/dL (3.4-4.8); Alkaline Phosphatase 98 U/L (40-110); Anion Gap 11 mmol/L (10-20); BUN (Urea Nitrogen) 23 mg/dL (8.4-25.7); Calc. Creatinine Clearance 79 mL/min (70-130); Calcium 8.4 mg/dL (7.8-10.44); Carbon Dioxide 26 mmol/L (23-31); Chloride 102 mmol/L (98-107); Globulin 2.9 g/dL (2.4-3.5); Glucose 96 mg/dL (83-110); Magnesium 2.4 mg/dL (1.6-2.6); Phosphorus 2.8 mg/dL (2.3-4.7); Potassium 4.6 mmol/L (3.5-5.1); Protein, Total 5.7 g/dL (5.8-8.1); Sodium 134 mmol/L (136-145)
[2021-06-07] MEDS: Cholecalciferol (Vitamin D3) 400 UNITS TAB PO SCH (09:44)
[2021-06-07] MEDS: Thiamine 100 MG TAB PO SCH (09:44)
[2021-06-07] MEDS: Enoxaparin Sodium 40 MG/0.4 ML SYRINGE SC SCH (09:44)
[2021-06-07] MEDS: Multivitamin W/ Minerals 1 TAB PO SCH (09:44)
[2021-06-07] MEDS: Ascorbic Acid 500 mg Chewable Tablet PO SCH (09:44)
[2021-06-07] MEDS: Zinc Sulfate 220 MG CAP PO SCH (09:44)
[2021-06-07] MEDS: Dexamethasone 20 MG/5 ML VIAL SLOW IVP SCH (09:44)
[2021-06-07] MEDS: traZODone HCl 50 MG TAB PO SCH ×2 (09:44→23:05)
[2021-06-07] MEDS: Folic Acid 1 MG TAB PO SCH (09:45)
[2021-06-07] MEDS: Pantoprazole 40 MG VIAL IVP SCH (09:45)
[2021-06-07] MEDS ORDERED: Fluticasone Propionate Nasal Spray 16 gm Bottle NASAL SCH (10:15)
[2021-06-07] MEDS: BARICITINIB 2 MG TAB PO SCH (18:13)
[2021-06-08] MEDS ORDERED: Vancomycin HCl 1 GM in Sodium Chloride 0.9% 250 ML 250 ML IVPB SCH (00:35)
[2021-06-08] MEDS: Cefepime 2 GM in Sodium Chloride 0.9% 100 ML IVPB SCH ×3 (01:33→17:45)
[2021-06-08] MEDS: VANCOMYCIN 1.25 GM/250 ML BAG 1.25 GM in Premix Bag 1 BAG IVPB SCH (01:33)
[2021-06-08 04:43] LABS: #Monocytes 1.2 10x3/uL (0.0-1.1); #Neutrophils 11.6 10x3/uL (1.5-8.4); %Basophils 0.3 % (0.0-2.0); %Eosinophils 0.1 % (0.0-6.0); %Lymphocytes 8.3 % (18.0-47.0); %Monocytes 8.3 % (0.0-10.0); %Neutrophils 82.2 % (40.0-75.0); Hemoglobin 16.5 g/dL (13.5-17.5); Mean Corpuscular HGB CONC 35.6 g/dL (32.0-36.0); Mean Corpuscular Volume 92.8 fl (81.2-95.1); Mean Platelet Volume 9.8 fl (7.4-10.4); Platelet Count 182 10x3/uL (150-450); White Blood Cell (WBC) Count 14.2 10x3/uL (3.5-10.5)
[2021-06-08 05:07] LABS: ALT (SGPT) 54 U/L (8-55); AST (SGOT) 34 U/L (5-34); Albumin 2.8 g/dL (3.4-4.8); Alkaline Phosphatase 103 U/L (40-110); Anion Gap 10 mmol/L (10-20); BUN (Urea Nitrogen) 20 mg/dL (8.4-25.7); Bilirubin, Total 1.1 mg/dL (0.2-1.2); Calc. Creatinine Clearance 84 mL/min (70-130); Calcium 8.4 mg/dL (7.8-10.44); Carbon Dioxide 24 mmol/L (23-31); Chloride 102 mmol/L (98-107); Glucose 89 mg/dL (83-110); Magnesium 2.3 mg/dL (1.6-2.6); Phosphorus 3.3 mg/dL (2.3-4.7); Potassium 4.3 mmol/L (3.5-5.1); Protein, Total 5.8 g/dL (5.8-8.1); Sodium 132 mmol/L (136-145)
[2021-06-08] MEDS: Enoxaparin Sodium 40 MG/0.4 ML SYRINGE SC SCH (07:59)
[2021-06-08] MEDS: Pantoprazole 40 MG VIAL IVP SCH (08:01)
[2021-06-08] MEDS: Dexamethasone 20 MG/5 ML VIAL SLOW IVP SCH (08:02)
[2021-06-08] MEDS: traZODone HCl 50 MG TAB PO SCH ×2 (08:04→20:09)
[2021-06-08] MEDS: Fluticasone Propionate Nasal Spray 16 gm Bottle NASAL SCH (08:04)
[2021-06-08] MEDS: Zinc Sulfate 220 MG CAP PO SCH (08:04)
[2021-06-08] MEDS: Cholecalciferol (Vitamin D3) 400 UNITS TAB PO SCH (08:05)
[2021-06-08] MEDS: Thiamine 100 MG TAB PO SCH (08:05)
[2021-06-08] MEDS: Multivitamin W/ Minerals 1 TAB PO SCH (08:05)
[2021-06-08] MEDS: Folic Acid 1 MG TAB PO SCH (08:05)
[2021-06-08] MEDS: Ascorbic Acid 500 mg Chewable Tablet PO SCH (08:05)
[2021-06-08 13:05] LABS: Legionella Urinary Ag Negative (Negative); Strep pneumo Urine Ag NEGATIVE (NEGATIVE)
[2021-06-09] MEDS: Cefepime 2 GM in Sodium Chloride 0.9% 100 ML IVPB SCH ×3 (01:36→17:05)
[2021-06-09] MEDS: VANCOMYCIN 1.25 GM/250 ML BAG 1.25 GM in Premix Bag 1 BAG IVPB SCH (01:38)
[2021-06-09 07:12] LABS: #Eosinphils 0.1 10x3/uL (0.0-0.5); #Monocytes 1.2 10x3/uL (0.0-1.1); %Basophils 0.3 % (0.0-2.0); %Lymphocytes 10.2 % (18.0-47.0); %Monocytes 10.5 % (0.0-10.0); %Neutrophils 76.5 % (40.0-75.0); Hemoglobin 15.6 g/dL (13.5-17.5); Mean Corpuscular HGB CONC 35.3 g/dL (32.0-36.0); Mean Corpuscular Hemoglobin 32.6 pg (27.0-33.0); Mean Corpuscular Volume 92.5 fl (81.2-95.1); Platelet Count 177 10x3/uL (150-450); RBC Distribution Width 12.2 % (11.5-14.5); Red Blood Cell (RBC) Count 4.78 10x6/uL (4.32-5.72); White Blood Cell (WBC) Count 11.8 10x3/uL (3.5-10.5)
[2021-06-09 07:46] LABS: ALT (SGPT) 52 U/L (8-55); AST (SGOT) 36 U/L (5-34); Albumin 2.6 g/dL (3.4-4.8); Alkaline Phosphatase 96 U/L (40-110); Anion Gap 10 mmol/L (10-20); BUN (Urea Nitrogen) 21 mg/dL (8.4-25.7); Bilirubin, Total 0.8 mg/dL (0.2-1.2); Calc. Creatinine Clearance 89 mL/min (70-130); Calcium 8.2 mg/dL (7.8-10.44); Carbon Dioxide 21 mmol/L (23-31); Chloride 103 mmol/L (98-107); Globulin 2.9 g/dL (2.4-3.5); Glucose 66 mg/dL (83-110); Magnesium 2.1 mg/dL (1.6-2.6); Phosphorus 2.5 mg/dL (2.3-4.7); Potassium 4.2 mmol/L (3.5-5.1); Protein, Total 5.5 g/dL (5.8-8.1); Sodium 130 mmol/L (136-145)
[2021-06-09] MEDS: Dexamethasone 20 MG/5 ML VIAL SLOW IVP SCH (09:10)
[2021-06-09] MEDS: Enoxaparin Sodium 40 MG/0.4 ML SYRINGE SC SCH (09:10)
[2021-06-09] MEDS: Cholecalciferol (Vitamin D3) 400 UNITS TAB PO SCH (09:11)
[2021-06-09] MEDS: Folic Acid 1 MG TAB PO SCH (09:11)
[2021-06-09] MEDS: Thiamine 100 MG TAB PO SCH (09:11)
[2021-06-09] MEDS: Ascorbic Acid 500 mg Chewable Tablet PO SCH (09:11)
[2021-06-09] MEDS: Pantoprazole 40 MG VIAL IVP SCH (09:11)
[2021-06-09] MEDS: traZODone HCl 50 MG TAB PO SCH ×2 (09:11→20:33)
[2021-06-09] MEDS: Zinc Sulfate 220 MG CAP PO SCH (09:11)
[2021-06-09] MEDS: Multivitamin W/ Minerals 1 TAB PO SCH (09:11)
[2021-06-09] MEDS: Fluticasone Propionate Nasal Spray 16 gm Bottle NASAL SCH (09:14)
[2021-06-09] MEDS: Acetaminophen 325 MG TAB PO PRN (20:34)
[2021-06-09] MEDS: Benzonatate 100 MG CAP PO PRN (20:34)
[2021-06-10] MEDS: Cefepime 2 GM in Sodium Chloride 0.9% 100 ML IVPB SCH ×3 (00:15→16:54)
[2021-06-10] MEDS: VANCOMYCIN 1.25 GM/250 ML BAG 1.25 GM in Premix Bag 1 BAG IVPB SCH (03:22)
[2021-06-10 06:36] LABS: #Eosinphils 0.2 10x3/uL (0.0-0.5); #Monocytes 0.9 10x3/uL (0.0-1.1); #Neutrophils 7.5 10x3/uL (1.5-8.4); %Basophils 0.3 % (0.0-2.0); %Eosinophils 1.7 % (0.0-6.0); %Lymphocytes 12.2 % (18.0-47.0); %Monocytes 8.9 % (0.0-10.0); %Neutrophils 75.2 % (40.0-75.0); Hemoglobin 15.3 g/dL (13.5-17.5); Mean Corpuscular HGB CONC 35.1 g/dL (32.0-36.0); Mean Platelet Volume 9.9 fl (7.4-10.4); Platelet Count 172 10x3/uL (150-450); RBC Distribution Width 11.9 % (11.5-14.5); Red Blood Cell (RBC) Count 4.64 10x6/uL (4.32-5.72); White Blood Cell (WBC) Count 9.9 10x3/uL (3.5-10.5)
[2021-06-10 06:38] LABS: ALT (SGPT) 53 U/L (8-55); AST (SGOT) 35 U/L (5-34); Albumin 2.5 g/dL (3.4-4.8); Alkaline Phosphatase 93 U/L (40-110); Anion Gap 11 mmol/L (10-20); BUN (Urea Nitrogen) 18 mg/dL (8.4-25.7); Bilirubin, Total 0.7 mg/dL (0.2-1.2); Calc. Creatinine Clearance 90 mL/min (70-130); Calcium 7.9 mg/dL (7.8-10.44); Carbon Dioxide 19 mmol/L (23-31); Chloride 102 mmol/L (98-107); Globulin 2.7 g/dL (2.4-3.5); Glucose 98 mg/dL (83-110); Phosphorus 2.2 mg/dL (2.3-4.7); Potassium 3.9 mmol/L (3.5-5.1); Protein, Total 5.2 g/dL (5.8-8.1); Sodium 128 mmol/L (136-145)
[2021-06-10 06:43] LABS: Vancomycin, Trough 51.5 ug/mL
[2021-06-10] MEDS: traZODone HCl 50 MG TAB PO SCH ×2 (08:44→20:58)
[2021-06-10] MEDS: Enoxaparin Sodium 40 MG/0.4 ML SYRINGE SC SCH (08:44)
[2021-06-10] MEDS: Multivitamin W/ Minerals 1 TAB PO SCH (08:44)
[2021-06-10] MEDS: Folic Acid 1 MG TAB PO SCH (08:44)
[2021-06-10] MEDS: Ascorbic Acid 500 mg Chewable Tablet PO SCH (08:44)
[2021-06-10] MEDS: Cholecalciferol (Vitamin D3) 400 UNITS TAB PO SCH (08:44)
[2021-06-10] MEDS: Zinc Sulfate 220 MG CAP PO SCH (08:44)
[2021-06-10] MEDS: Thiamine 100 MG TAB PO SCH (08:44)
[2021-06-10] MEDS: Dexamethasone 20 MG/5 ML VIAL SLOW IVP SCH (08:44)
[2021-06-10] MEDS: Fluticasone Propionate Nasal Spray 16 gm Bottle NASAL SCH (08:45)
[2021-06-10] MEDS: Pantoprazole 40 MG VIAL IVP SCH (08:45)
[2021-06-10] MEDS ORDERED: Electrolyte Replacement Protocol 1 EACH FS PRN (18:00)
[2021-06-10] MEDS: Benzonatate 100 MG CAP PO PRN (20:58)
[2021-06-10] MEDS ORDERED: Magnesium 2 GM/50 ML 2 GM in Premix Bag 1 BAG IVPB SCH (21:00)
[2021-06-11] MEDS: Cefepime 2 GM in Sodium Chloride 0.9% 100 ML IVPB SCH ×3 (00:21→17:31)
[2021-06-11 01:43] LABS: Vancomycin, Trough 5.7 ug/mL
[2021-06-11] MEDS: VANCOMYCIN 1.25 GM/250 ML BAG 1.25 GM in Premix Bag 1 BAG IVPB SCH (02:11)
[2021-06-11] MEDS: Vancomycin HCl 1 GM in Sodium Chloride 0.9% 250 ML 250 ML IVPB SCH ×2 (02:58→16:19)
[2021-06-11 04:26] LABS: ALT (SGPT) 54 U/L (8-55); AST (SGOT) 34 U/L (5-34); Albumin 2.7 g/dL (3.4-4.8); Alkaline Phosphatase 98 U/L (40-110); Anion Gap 10 mmol/L (10-20); BUN (Urea Nitrogen) 13 mg/dL (8.4-25.7); Bilirubin, Total 0.9 mg/dL (0.2-1.2); Calc. Creatinine Clearance 94 mL/min (70-130); Calcium 7.8 mg/dL (7.8-10.44); Carbon Dioxide 19 mmol/L (23-31); Chloride 102 mmol/L (98-107); Globulin 2.8 g/dL (2.4-3.5); Glucose 90 mg/dL (83-110); Magnesium 2.5 mg/dL (1.6-2.6); Phosphorus 2.2 mg/dL (2.3-4.7); Potassium 3.9 mmol/L (3.5-5.1); Protein, Total 5.5 g/dL (5.8-8.1); Sodium 127 mmol/L (136-145)
[2021-06-11 05:08] LABS: #Eosinphils 0.2 10x3/uL (0.0-0.5); #Neutrophils 9.3 10x3/uL (1.5-8.4); %Basophils 0.3 % (0.0-2.0); %Eosinophils 1.6 % (0.0-6.0); %Lymphocytes 10.9 % (18.0-47.0); %Monocytes 7.9 % (0.0-10.0); %Neutrophils 77.4 % (40.0-75.0); Hemoglobin 16.2 g/dL (13.5-17.5); Mean Corpuscular HGB CONC 34.9 g/dL (32.0-36.0); Mean Corpuscular Volume 91.5 fl (81.2-95.1); Mean Platelet Volume 9.5 fl (7.4-10.4); Platelet Count 194 10x3/uL (150-450); RBC Distribution Width 11.8 % (11.5-14.5); Red Blood Cell (RBC) Count 5.07 10x6/uL (4.32-5.72)
[2021-06-11] MEDS: Dexamethasone 20 MG/5 ML VIAL SLOW IVP SCH (08:59)
[2021-06-11] MEDS: traZODone HCl 50 MG TAB PO SCH ×2 (09:00→20:06)
[2021-06-11] MEDS: Pantoprazole 40 MG VIAL IVP SCH (09:00)
[2021-06-11] MEDS: Fluticasone Propionate Nasal Spray 16 gm Bottle NASAL SCH (09:00)
[2021-06-11] MEDS: Zinc Sulfate 220 MG CAP PO SCH (09:00)
[2021-06-11] MEDS: Enoxaparin Sodium 40 MG/0.4 ML SYRINGE SC SCH (09:00)
[2021-06-11] MEDS: Thiamine 100 MG TAB PO SCH (09:00)
[2021-06-11] MEDS: Multivitamin W/ Minerals 1 TAB PO SCH (09:00)
[2021-06-11] MEDS: Ascorbic Acid 500 mg Chewable Tablet PO SCH (09:00)
[2021-06-11] MEDS: Cholecalciferol (Vitamin D3) 400 UNITS TAB PO SCH (09:00)
[2021-06-11] MEDS: Folic Acid 1 MG TAB PO SCH (09:00)
[2021-06-11] MEDS ORDERED: Dextrose 5 % And 0.9 % NaCl 1,000 ML IV SCH (10:45)
[2021-06-12] MEDS: Cefepime 2 GM in Sodium Chloride 0.9% 100 ML IVPB SCH ×3 (00:11→17:32)
[2021-06-12] MEDS: Vancomycin HCl 1 GM in Sodium Chloride 0.9% 250 ML 250 ML IVPB SCH (03:37)
[2021-06-12] MEDS: Thiamine 100 MG TAB PO SCH (08:45)
[2021-06-12] MEDS: traZODone HCl 50 MG TAB PO SCH ×2 (08:45→20:53)
[2021-06-12] MEDS: Ascorbic Acid 500 mg Chewable Tablet PO SCH (08:45)
[2021-06-12] MEDS: Cholecalciferol (Vitamin D3) 400 UNITS TAB PO SCH (08:45)
[2021-06-12] MEDS: Multivitamin W/ Minerals 1 TAB PO SCH (08:45)
[2021-06-12] MEDS: Enoxaparin Sodium 40 MG/0.4 ML SYRINGE SC SCH (08:45)
[2021-06-12] MEDS: Folic Acid 1 MG TAB PO SCH (08:45)
[2021-06-12] MEDS: Zinc Sulfate 220 MG CAP PO SCH (08:45)
[2021-06-12] MEDS: Dexamethasone 20 MG/5 ML VIAL SLOW IVP SCH (08:46)
[2021-06-12] MEDS: Pantoprazole 40 MG VIAL IVP SCH (08:46)
[2021-06-12] MEDS: Fluticasone Propionate Nasal Spray 16 gm Bottle NASAL SCH (08:48)
[2021-06-12 11:37] LABS: QuantiFERON-TB Gold Plus Indeterminate (Negative)
[2021-06-12 13:37] LABS: Mycoplasma pneumoniae IgG AB 217 U/mL (0-99); Mycoplasma pneumoniae IgM AB Less than 770 U/mL (0-769)
[2021-06-12 14:01] LABS: Vancomycin, Trough 14.9 ug/mL
[2021-06-12 14:40] LABS: ALT (SGPT) 54 U/L (8-55); AST (SGOT) 39 U/L (5-34); Alkaline Phosphatase 100 U/L (40-110); Anion Gap 10 mmol/L (10-20); BUN (Urea Nitrogen) 12 mg/dL (8.4-25.7); Bilirubin, Total 0.8 mg/dL (0.2-1.2); Calc. Creatinine Clearance 90 mL/min (70-130); Calcium 8.2 mg/dL (7.8-10.44); Carbon Dioxide 20 mmol/L (23-31); Chloride 100 mmol/L (98-107); Glucose 137 mg/dL (83-110); Potassium 3.8 mmol/L (3.5-5.1); Sodium 126 mmol/L (136-145)
[2021-06-12] MEDS ORDERED: Furosemide 20 MG/2 ML VIAL SLOW IVP SCH (18:00)
[2021-06-12] MEDS ORDERED: Potassium Bicarbonate/Cit Ac 20 MEQ TAB PO SCH (18:15)
[2021-06-12] MEDS: Ondansetron PF 4 MG/2 ML Vial IVP PRN (21:14)
[2021-06-13] MEDS: Cefepime 2 GM in Sodium Chloride 0.9% 100 ML IVPB SCH (01:51)
[2021-06-13 04:25] LABS: ALT (SGPT) 52 U/L (8-55); AST (SGOT) 38 U/L (5-34); Albumin 2.9 g/dL (3.4-4.8); Alkaline Phosphatase 94 U/L (40-110); Anion Gap 10 mmol/L (10-20); BUN (Urea Nitrogen) 14 mg/dL (8.4-25.7); Calc. Creatinine Clearance 81 mL/min (70-130); Calcium 8.2 mg/dL (7.8-10.44); Carbon Dioxide 24 mmol/L (23-31); Chloride 99 mmol/L (98-107); Globulin 2.9 g/dL (2.4-3.5); Glucose 89 mg/dL (83-110); Potassium 3.8 mmol/L (3.5-5.1); Protein, Total 5.8 g/dL (5.8-8.1); Sodium 129 mmol/L (136-145)
[2021-06-13] MEDS: Enoxaparin Sodium 40 MG/0.4 ML SYRINGE SC SCH (07:35)
[2021-06-13] MEDS: Dexamethasone 20 MG/5 ML VIAL SLOW IVP SCH (07:35)
[2021-06-13] MEDS: Fluticasone Propionate Nasal Spray 16 gm Bottle NASAL SCH (07:36)
[2021-06-13] MEDS: Thiamine 100 MG TAB PO SCH (07:36)
[2021-06-13] MEDS: Folic Acid 1 MG TAB PO SCH (07:36)
[2021-06-13] MEDS: Multivitamin W/ Minerals 1 TAB PO SCH (07:36)
[2021-06-13] MEDS: Pantoprazole 40 MG VIAL IVP SCH (07:36)
[2021-06-13] MEDS: traZODone HCl 50 MG TAB PO SCH (07:36)
[2021-06-13] MEDS: Zinc Sulfate 220 MG CAP PO SCH (07:36)
[2021-06-13] MEDS: Cholecalciferol (Vitamin D3) 400 UNITS TAB PO SCH (07:36)
[2021-06-13] MEDS: Ascorbic Acid 500 mg Chewable Tablet PO SCH (07:36)
[2021-06-13] MEDS: Acetaminophen 325 MG TAB PO PRN (11:44)
[2021-06-13 15:57] VITALS: BP 131/62
[2021-06-13 16:18] VITALS: TEMP 96.6
== END 2021-06-13 16:27 | DRG 177 ==
LOC: CSHERS 11:40 → CSHTELE 16:48 → CSHICU 05-30 19:49 → CSHTELE 06-03 00:09
PROVIDERS: ADMIT Internal Medicine; ATTEND Family Medicine
PROC: XW033E5 Introduction of Remdesivir Anti-infective into Peripheral Vein, Percutaneous Approach, New Technology Group 5 (ICD-10-PCS; principal; 2021-05-25)
PROC: 8E0ZXY6 Isolation (ICD-10-PCS; 2021-05-25)
PROC: XW0DXM6 Introduction of Baricitinib into Mouth and Pharynx, External Approach, New Technology Group 6 (ICD-10-PCS; 2021-05-30)
DX: U07.1 COVID-19 (principal); J12.82 Pneumonia due to coronavirus disease 2019; J96.01 Acute respiratory failure with hypoxia; C64.9 Malignant neoplasm of unspecified kidney, except renal pelvis; E22.2 Syndrome of inappropriate secretion of antidiuretic hormone; R91.8 Other nonspecific abnormal finding of lung field; I10 Essential (primary) hypertension; R41.0 Disorientation, unspecified; R00.0 Tachycardia, unspecified; Z72.89 Other problems related to lifestyle; Z90.49 Acquired absence of other specified parts of digestive tract
CPT/HCPCS: 36415; 36600; 71045; 71275; 74174; 80048; 80053; 80076; 80202; 82533; 82728; 82805; 83605; 83735; 84100; 84145; 84300; 84484; 85025; 85610; 85652; 85730; 86140; 86480; 86635; 86704; 86705; 86706; 86707; 86803; 86850; 86900; 86901; 87040; 87081; 87086; 87340; 87350; 87389; 87449; 87522; 87899; 93005; 93010; 93970; 94640; 94760; 94762; 96374; C9113; J0360; J0692; J1100; J1650; J1885; J1940; J2270; J2405; J2550; J3370; J3475; J3490; J7030; J7042; J7050

== ENCOUNTER 2021-06-14 10:32 | Emergency (ER) | payer MEDICARE ==
[2021-06-14 11:25] LABS: #Eosinphils 0.3 10x3/uL (0.0-0.5); #Monocytes 0.7 10x3/uL (0.0-1.1); #Neutrophils 7.6 10x3/uL (1.5-8.4); %Basophils 0.4 % (0.0-2.0); %Eosinophils 3.2 % (0.0-6.0); %Lymphocytes 12.2 % (18.0-47.0); %Monocytes 7.2 % (0.0-10.0); %Neutrophils 75.2 % (40.0-75.0); Hemoglobin 16.7 g/dL (13.5-17.5); Mean Corpuscular HGB CONC 35.8 g/dL (32.0-36.0); Mean Corpuscular Hemoglobin 32.4 pg (27.0-33.0); Mean Corpuscular Volume 90.7 fl (81.2-95.1); Mean Platelet Volume 9.3 fl (7.4-10.4); Platelet Count 199 10x3/uL (150-450); RBC Distribution Width 11.9 % (11.5-14.5); Red Blood Cell (RBC) Count 5.15 10x6/uL (4.32-5.72); White Blood Cell (WBC) Count 10.1 10x3/uL (3.5-10.5)
[2021-06-14 11:47] LABS: ALT (SGPT) 58 U/L (8-55); AST (SGOT) 42 U/L (5-34); Albumin 3.2 g/dL (3.4-4.8); Alkaline Phosphatase 109 U/L (40-110); Anion Gap 12 mmol/L (10-20); BUN (Urea Nitrogen) 18 mg/dL (8.4-25.7); Bilirubin, Total 0.7 mg/dL (0.2-1.2); Calc. Creatinine Clearance 0 mL/min (70-130); Calcium 8.3 mg/dL (7.8-10.44); Carbon Dioxide 25 mmol/L (23-31); Chloride 97 mmol/L (98-107); Globulin 2.5 g/dL (2.4-3.5); Glucose 104 mg/dL (83-110); Potassium 4.6 mmol/L (3.5-5.1); Protein, Total 5.7 g/dL (5.8-8.1); Sodium 129 mmol/L (136-145)
== END 2021-06-14 17:15 | disposition home or self-care (01) ==
LOC: CSHERS 10:32
DX: R07.81 Pleurodynia (principal); N20.0 Calculus of kidney; I10 Essential (primary) hypertension; Z87.01 Personal history of pneumonia (recurrent); Z86.16 Personal history of COVID-19
CPT/HCPCS: 36415; 71275; 80053; 84484; 85025; 93005

== ENCOUNTER 2021-08-27 15:09 | Emergency (ER) | payer OTHER, MEDICARE ==
[2021-08-27] MEDS ORDERED: Lidocaine 1% w/Epinephrine 1:100K 20 ML VIAL ONE (15:17)
== END 2021-08-27 16:33 | disposition home or self-care (01) ==
LOC: CSHERS 15:09
DX: S43.101A Unspecified dislocation of right acromioclavicular joint, initial encounter (principal); S01.01XA Laceration without foreign body of scalp, initial encounter; I10 Essential (primary) hypertension; W01.198A Fall on same level from slipping, tripping and stumbling with subsequent striking against other object, initial encounter
CPT/HCPCS: 12004; 70450; 72125

== ENCOUNTER 2021-10-10 11:32 | Outpatient (CLI) | payer MEDICARE ==
[2021-10-11 10:44] LABS: SARS-CoV-2 PCR by NAA Not Detected (NotDetected)
== END 2021-10-10 11:33 | disposition home or self-care (01) ==
LOC: CSHLAB 11:32
PROVIDERS: ATTEND Internal Medicine Pulmonary Disease
DX: Z20.822 Contact with and (suspected) exposure to COVID-19 (principal)
CPT/HCPCS: U0003; U0005

== ENCOUNTER 2021-10-12 07:45 | Outpatient (CLI) | payer MEDICARE ==
[2021-10-12] MEDS ORDERED: Iopamidol 300 61% 100 ML VIAL FS ONE (15:12)
== END 2021-10-12 07:46 | disposition home or self-care (01) ==
LOC: CSHCP 07:45
PROVIDERS: ATTEND Internal Medicine Pulmonary Disease
DX: J84.9 Interstitial pulmonary disease, unspecified (principal); R94.2 Abnormal results of pulmonary function studies; R91.8 Other nonspecific abnormal finding of lung field
CPT/HCPCS: 71260; 82565; 94010; 94726; 94729; 94760; Q9967

== ENCOUNTER 2022-02-27 08:17 | Outpatient (CLI) | payer MEDICARE ==
[2022-02-27] MEDS ORDERED: Iopamidol 300 61% 100 ML VIAL FS ONE (11:49)
== END 2022-02-27 08:18 | disposition home or self-care (01) ==
LOC: CSHCT 08:17
PROVIDERS: ATTEND Internal Medicine Hematology & Oncology
DX: C64.9 Malignant neoplasm of unspecified kidney, except renal pelvis (principal); R91.8 Other nonspecific abnormal finding of lung field; Z90.5 Acquired absence of kidney
CPT/HCPCS: 71260; 74177; 82565

== ENCOUNTER 2023-04-27 09:09 | Outpatient (CLI) | payer OTHER ==
[2023-04-27] MEDS ORDERED: Iopamidol 300 61% 100 ML VIAL FS ONE (10:45)
== END 2023-04-27 09:10 | disposition home or self-care (01) ==
LOC: CSHCT 09:09
PROVIDERS: ATTEND Internal Medicine Hematology & Oncology
DX: C64.1 Malignant neoplasm of right kidney, except renal pelvis (principal); R91.8 Other nonspecific abnormal finding of lung field; Z90.5 Acquired absence of kidney
CPT/HCPCS: 71260; 74177; 82565; Q9967

== ENCOUNTER 2023-07-20 07:52 | Outpatient (CLI) | payer OTHER ==
[2023-07-20] MEDS ORDERED: Iopamidol 300 61% 100 ML VIAL FS ONE (11:16)
== END 2023-07-20 07:53 | disposition home or self-care (01) ==
LOC: CSHCT 07:52
PROVIDERS: ATTEND Internal Medicine Hematology & Oncology
DX: C64.9 Malignant neoplasm of unspecified kidney, except renal pelvis (principal); R91.8 Other nonspecific abnormal finding of lung field; J98.4 Other disorders of lung
CPT/HCPCS: 71260; 82565; Q9967

== ENCOUNTER 2024-06-23 08:35 | Outpatient (CLI) | payer OTHER ==
[2024-06-23] MEDS ORDERED: Magnevist 469MG/ML 20 ML VIAL ONE (11:02)
== END 2024-06-23 08:36 | disposition home or self-care (01) ==
LOC: CSHMRI 08:35
PROVIDERS: ATTEND Radiology Radiation Oncology
DX: C79.31 Secondary malignant neoplasm of brain (principal)
CPT/HCPCS: 36415; 70553; 76376; 82565

== ENCOUNTER 2025-02-13 08:36 | Outpatient (CLI) | payer OTHER | END 2025-02-13 08:37 | disposition home or self-care (01) | LOC: CSHMRI 08:36 | PROVIDERS: ATTEND Radiology Radiation Oncology | DX: C79.31 Secondary malignant neoplasm of brain (principal); G93.6 Cerebral edema; Z92.3 Personal history of irradiation | CPT/HCPCS: 70553; 76376 ==

== ENCOUNTER 2025-04-09 07:38 | Outpatient (CLI) | payer OTHER | END 2025-04-09 07:39 | disposition home or self-care (01) | LOC: CSHMRI 07:38 | PROVIDERS: ATTEND Radiology Radiation Oncology | DX: C79.31 Secondary malignant neoplasm of brain (principal); C64.1 Malignant neoplasm of right kidney, except renal pelvis; R59.0 Localized enlarged lymph nodes | CPT/HCPCS: 36415; 70553; 71260; 74177; 76376; 82565 ==